=== PATIENT | female | born 1995 | race Caucasian/White ===

== ENCOUNTER 2019-08-21 11:08 | Emergency (ER) | payer BC ==
[~2019-08-21] VITALS: Ht 157.5 cm; Wt 60.0 kg
[2019-08-21 11:30] VITALS: BP 111/75
[2019-08-21] MEDS ORDERED: KETO5DRO11 RIGHTEYE (12:32)
[2019-08-22] MEDS ORDERED: iohexol 300mg/ml 100ml inj. ONE (18:49)
== END 2019-08-21 12:50 | disposition home or self-care (01) ==
LOC: ER 11:09
DX: H10.11 Acute atopic conjunctivitis, right eye (principal); Z79.899 Other long term (current) drug therapy
CPT/HCPCS: 99282; Q9967